=== PATIENT | female | born 1980 | race Caucasian/White ===

== ENCOUNTER → 2021-03-12 | Outpatient (CLI) | payer OTHER ==
[~2021-03-12] MED LIST: CLARITIN10 MG PO; EPIPEN 2-P0.3 MG/0.3 IM; HYDROCHLOROTH12.5 MG PO; NORCO 5-325 TA1 EACH PO; ORTHO-CYCLEN1 EACH PO; PERCOCET 7.5-51 EACH PO; PREDNISONE 20 M20 MG PO; ZANTAC 150MG T150 MG PO
[2021-03-12 09:13] LABS: ABSOLUTE NEUTROPHILS 6.2 thou/uL (1.4-8.2); BASOPHILS 0.3 % (0.0-2.0); HEMATOCRIT 39.5 % (37.0-47.0); HEMOGLOBIN 13.1 gm/dL (12.0-15.0); LYMPHOCYTES 21.9 % (24.0-44.0); MCH 27.3 pg (26.0-34.0); MCHC 33.2 g/dL (28.0-37.0); MCV 82.1 fL (80.0-100.0); MONOCYTES 7.1 % (1.0-8.0); PLATELET COUNT 423 thou/uL (150-400); POLYS 69.7 % (36.0-66.0); RBC 4.81 mil/uL (4.20-5.00); RDW 15.9 % (10.5-14.5); WBC 8.9 thou/uL (4.0-11.0)
[2021-03-12 09:29] LABS: ALBUMIN 3.7 g/dL (3.4-5.0); ANION GAP 7 mmol/L (7-16); BUN 16 mg/dL (7-18); CALCIUM 8.9 mg/dL (8.5-10.1); CHLORIDE 106 mmol/L (98-107); CO2 28 mmol/L (21-32); CREATININE 0.7 mg/dL (0.6-1.0); GLUCOSE 110 mg/dL (74-106); POTASSIUM 4.5 mmol/L (3.5-5.1); SGOT 14 U/L (15-37); SGPT 26 U/L (14-59); SODIUM 141 mmol/L (136-145); TOTAL BILIRUBIN 0.2 mg/dL (0.2-1.0)
[2021-03-12 09:50] LABS: CHOLESTEROL 177 mg/dL (<200); HDL CHOLESTEROL 43 mg/dL (>40); LDL CHOLESTEROL 103 mg/dL (<100); TC:HDL 4.1 Ratio (Not establshd); TRIGLYCERIDE 156 mg/dL (<150); VLDL 31 mg/dL (<40)
== END ==
LOC: LAB 08:09
PROVIDERS: ATTEND Neuromusculoskeletal Medicine & OMM
DX: Z79.899 Other long term (current) drug therapy (principal)